=== PATIENT | female | born 1995 | race Hispanic/Latino ===

== ENCOUNTER 2017-08-26 18:22 | Emergency (ER) | payer MEDICAID ==
[~2017-08-26] VITALS: Ht 160 cm; Wt 77.1 kg
--- NOTE | 2017-08-26 18:46 | ER.PDOC ---
General Chief Complaint: Requesting Medical Care Stated Complaint: VOMITING(APPROX 6-8 WKS PREG) Time seen by MD: 18:46 Source: patient Exam Limitations: no limitations History of Present Illness Initial Comments Pt is 6 weeks and has been vomiting x5 times a day x 2 days. Pt denied abdominal pain or dysuria Allergies: Coded Allergies: No Known Allergies (Unverified , 08/26/17) Vital Signs First Vital Signs Date Time Temp Pulse Resp B/P (MAP) Pulse Ox O2 Delivery O2 Flow Rate FiO2 08/26/17 18:47 97.9 87 16 99 Room Air Last Vital Signs Date Time Temp Pulse Resp B/P (MAP) Pulse Ox O2 Delivery O2 Flow Rate FiO2 08/26/17 20:52 87 16 99 Room Air 08/26/17 18:51 97.9 Constitutional: see HPI Gastrointestinal: see HPI Genitourinary: see HPI All Other Systems: Reviewed and Negative Physical Exam General Appearance: No Apparent Distress HEENT: Normal ENT Inspection Neck: Full Range of Motion Respiratory: lungs clear Cardiovascular: Normal Peripheral Pulses Gastrointestinal: Non Tender Back: Normal Inspection Extremities: Normal Range of Motion Neurologic/Psychiatric: No Motor/Sensory Deficits Skin: Normal Color Results/Orders Results/Orders Laboratory Tests Test 08/26/17 19:05 White Blood Count 9.8 10^3/uL (4.5-11.0) Red Blood Count 4.30 10^6/uL (4.00-5.20) Hemoglobin 13.4 g/dL (12.0-15.0) Hematocrit 38.3 % (36.0-46.0) Mean Corpuscular Volume 89.1 fL (78-100) Mean Corpuscular Hemoglobin 31.2 pg (26-34) Mean Corpuscular Hemoglobin Concent 35.0 g/dL (33-37) Red Cell Distribution Width 12.8 % (11.5-14.5) Platelet Count 234 10^3/uL (150-400) Mean Platelet Volume 9.8 fL (7.8-11.0) Neutrophils (%) (Auto) 71.6 % (41.0-85.0) Lymphocytes (%) (Auto) 22.9 % (24.0-44.0) Monocytes (%) (Auto) 4.8 % (5.0-12.0) Neutrophils # (Auto) 7.0 10^3/uL (1.8-7.7) Lymphocytes # (Auto) 2.2 10^3/uL (1.0-4.8) Monocytes # (Auto) 0.5 10^3/uL (0.3-0.8) Absolute Immature Granulocyte (auto 0.02 10^3 u/L (0-2) Eosinophils % 0.2 % (0.0-5.0) Basophils % 0.3 % (0.0-0.2) Basophils # 0.0 10^3/uL (0.0-0.1) Eosinophil Count 0.0 10^3/uL (0.0-0.2) Urine Collection Type UNKNOWN Urine Color YELLOW (YELLOW) Urine Appearance CLOUDY (CLEAR) Urine Bilirubin NEGATIVE MG/DL (NEGATIVE) Urine Ketones 150 mg/dL (NEGATIVE) Urine Specific [place] 1.015 (1.005-1.035) Urine pH 7 (5.0-6.0) Urine Protein NEGATIVE (NEGATIVE) Urine Urobilinogen 1.0 (NEGATIVE) Urine Nitrate NEGATIVE (NEGATIVE) Urine Leukocyte Esterase 500/uL 2+ (NEGATIVE) Urine Blood 10 TR (NEGATIVE) Urine RBC 0-2 RBC/HPF (NONE SEEN) Urine WBC 10-25 WBC/HPF (0-2) Urine Squamous Epithelial Cells FEW #/HPF (FEW) Urine Amorphous Sediment LARGE (NONE SEEN) Urine Bacteria MANY (NONE SEEN) Urine Glucose NORMAL (NEGATIVE) Sodium Level 135 mmol/L (132-145) Potassium Level 3.8 mmol/L (3.6-5.2) Chloride Level 101.0 mmol/L (96-109) Carbon Dioxide Level 24.0 mmol/L (20.0-32) Anion Gap 13.8 Blood Urea Nitrogen 6 mg/dL (7-18) Creatinine 0.77 mg/dL (0.59-1.40) Estimated GFR () 114.5 (>/=60) BUN/Creatinine Ratio 7.0 Glucose Level 91 mg/dL (70-110) Calcium Level 9.2 mg/dL (8.4-10.5) Total Bilirubin 0.7 mg/dL (0.2-1.0) Aspartate Amino Transf (AST/SGOT) 20 U/L (0-35) Alanine Aminotransferase (ALT/SGPT) 15 U/L (12-78) Alkaline Phosphatase 77 U/L (50-136) Total Protein 7.4 g/dL (6.4-8.2) Albumin 3.6 g/dL (3.4-5.0) Globulin 3.8 Lipase 84 U/L (114-286) Serum HCG, Qualitative POSITIVE (NEGATIVE) Ketones LARGE (NEGATIVE) Percent Immature Gran (Cell Imm) 0.20 % (0.00-0.50) Microbiology Date/Time Source Procedure Growth Status 08/26/17 19:05 Urine Unknown Urine Culture - Preliminary Resulted Departure Time of Disposition: 20:18 Disposition: 01 HOME, SELF-CARE Impression: Primary Impression: Hyperemesis arising during Condition: Stable Referrals: PCP,UNKNOWN (PCP) PRIMARY CARE PROVIDER Duration or Time Spent with Pa: 15 LEIDA GUARDADO MD Aug 26, 2017 18:46
[2017-08-26] MEDS ORDERED: PHENERGAN IV STA (19:05)
[2017-08-26] MEDS ORDERED: LACTATED RINGERS 1,000 ML ONE ×2 (19:06→20:09)
[2017-08-26] MEDS ORDERED: PHENERGAN ONE (19:07)
--- NOTE | 2017-08-26 19:14 | NUR ---
URINE COLLECTED AND TAKEN TO LAB
[2017-08-26 19:16] LABS: BILIRUBIN,URINE NEGATIVE (NEGATIVE)
[2017-08-26 19:18] LABS: APPEARANCE,URINE CLOUDY (CLEAR); BASOPHIL % 0.3 % (0.0-0.2); EOSINOPHIL % 0.2 % (0.0-5.0); HEMOGLOBIN 13.4 g/dL (12.0-15.0); LYMPHOCYTES # 2.2 10^3/uL (1.0-4.8); LYMPHOCYTES % 22.9 % (24.0-44.0); MEAN CELL HGB 31.2 pg (26-34); MEAN CORP VOLUME 89.1 fL (78-100); MEAN PLATELET VOLUME 9.8 fL (7.8-11.0); MONOCYTES # 0.5 10^3/uL (0.3-0.8); MONOCYTES % 4.8 % (5.0-12.0); NEUTROPHILS % 71.6 % (41.0-85.0); RED CELL DISTRIBUTION WIDTH 12.8 % (11.5-14.5); UA COLOR YELLOW (YELLOW); WHITE BLOOD CELL 9.8 10^3/uL (4.5-11.0)
[2017-08-26] MEDS ORDERED: LACTATED RINGERS 1,000 ML IV ONE ×2 (19:30→20:30)
[2017-08-26 19:37] LABS: CALCIUM 9.2 mg/dL (8.4-10.5)
[2017-08-26 20:52] VITALS: BP 136/73
== END 2017-08-26 20:51 | disposition home or self-care (01) ==
LOC: ER 18:22
DX: O21.0 Mild hyperemesis gravidarum (principal); Z3A.08 8 weeks gestation of pregnancy
CPT/HCPCS: 36415; 80053; 81000; 83690; 84703; 85025; 87086; 96361; 96374; 99284; J2550; J7120 ×2